=== PATIENT | male | born 1945 | race Caucasian/White ===

== ENCOUNTER 2018-11-17 21:22 | Emergency (ER) | payer MEDICARE, OTHER ==
[~2018-11-17] VITALS: Ht 195.6 cm; Wt 124.7 kg
[2018-11-17] MEDS ORDERED: LOTENSIN20 MG PO (21:40)
[2018-11-17] MEDS ORDERED: FLOMAX0.4 MG PO (21:40)
[2018-11-17] MEDS ORDERED: MELOXICAM15 MG PO (21:41)
[2018-11-17] MEDS ORDERED: TERAZOSIN HCL5 MG PO (21:41)
[2018-11-17] MEDS ORDERED: OMEPRAZOLE20 MG PO (21:41)
[2018-11-17] MEDS ORDERED: NORVASC10 MG PO (21:41)
[2018-11-17] MEDS ORDERED: DOXYCYCLINE HY100 MG PO (22:04)
== END 2018-11-17 22:40 | disposition home or self-care (01) ==
LOC: ED 21:22
DX: L08.9 Local infection of the skin and subcutaneous tissue, unspecified (principal); Z88.2 Allergy status to sulfonamides; Z79.899 Other long term (current) drug therapy
CPT/HCPCS: 90471; 90715; 99282-25